=== PATIENT | female | born 1940 | race Caucasian/White ===

== ENCOUNTER 2016-05-18 09:29 | Outpatient (CLI) | payer MEDICARE, OTHER ==
[2015-09-08 11:04] VITALS: BP 144/74
== END 2016-05-18 09:30 ==
LOC: RT 09:29
PROVIDERS: ATTEND Family Medicine
DX: I49.9 Cardiac arrhythmia, unspecified (principal)

== ENCOUNTER 2017-12-14 15:48 | Outpatient (CLI) | payer OTHER ==
[2015-09-08 11:04] VITALS: BP 144/74
[2017-12-14 16:18] LABS: MEAN CORPUSCULAR HEMOGLOBIN 29.9 pg (28.0-34.0); MEAN CORPUSCULAR VOLUME 88.6 fl (80.0-100.0)
[2017-12-14 16:40] LABS: eGFR (African) > 60; eGFR (Non-African) > 60
== END 2017-12-14 15:50 ==
LOC: LAB 15:48
PROVIDERS: ATTEND Family Medicine
DX: E03.9 Hypothyroidism, unspecified (principal); R53.83 Other fatigue
CPT/HCPCS: 36415; 80053; 84443; 85027